=== PATIENT | female | born 1935 | race Caucasian/White ===

== ENCOUNTER → 2021-06-04 11:18 | Outpatient (CLI) | payer MEDICARE, BC, SELFPAY ==
[2021-06-06 17:10] LABS: Carcinoembryonic Antigen 5.8 ng/mL (0.0-4.7)
== END ==
DX: C50.911 Malignant neoplasm of unspecified site of right female breast (principal)
CPT/HCPCS: 36415; 82378

== ENCOUNTER → 2023-01-15 | Outpatient (CLI) | payer MEDICARE, BC, SELFPAY ==
[2023-01-15 11:39] LABS: Anion Gap 6 (5-15); BUN 17 mg/dL (7-18); BUN/Creat Ratio 21.3 RATIO (10-20); Calcium,Total 8.5 mg/dL (8.5-10.1); Chloride 109 mmol/L (98-107); EST Glomerular Filtration Rate 72 mL/min (>60); Est Glom Filt Rate - Afr Amer 88 mL/min (>60); Glucose 112 mg/dL (74-106); Magnesium 2.1 mg/dL (1.6-2.6); Potassium 4.1 mmol/L (3.5-5.1); Sodium Level 138 mmol/L (136-145)
== END | disposition home or self-care (01) ==
LOC: PSN 09:48
DX: I48.19 Other persistent atrial fibrillation (principal)
CPT/HCPCS: 36415; 80048; 83735; 93005